=== PATIENT | male | born 1965 ===

== ENCOUNTER 2018-02-28 15:44 | Emergency (ER) | payer OTHER ==
[2018-02-28 15:51] VITALS: BP 123/77; PULSE 69; RESP 18; TEMP 98.2; O2SAT 100
--- NOTE | 2018-02-28 15:53 | C.PDOC ---
History Of Present Illness REQUESTING FENTANYL PATCH. PS DID NOT REALIZE WAS ON LAST PATCH. CURRENTLY GETS CANCER TREATMENT IN [facility] IN [place]. PT DOES NOT REQUEST A MED REFILL, ONLY 1 DOSE NOW "SO I CAN LAST LONG ENOUGH TO SEE MY CANCER DOCTOR". DENIES NEW SX EXAM NEG MDM RX REVIEWED: RECEIVES PRESCRIPTION FROM [facility] Time Seen by Provider: 02/28/18 15:53 Chief Complaint (Nursing): Med Refill History Per: Patient History/Exam Limitations: no limitations Past Medical History Reviewed: Historical Data, Nursing Documentation, Vital Signs Vital Signs: Last Vital Signs Temp 98.2 F 02/28/18 15:49 Pulse 69 02/28/18 15:49 Resp 18 02/28/18 15:49 BP 123/77 02/28/18 15:49 Pulse Ox 100 02/28/18 16:07 - Medical History PMH: Back Problems Denies: HIV, Chronic Kidney Disease Surgical History: Appendectomy, Cholecystectomy - [facility] INTRODUCTION OF SERUM/TOX/VACCINE INTO MUSCLE, PERC APPROACH (12/07/16) Family History: States: No Known Family Hx - Social History Hx Tobacco Use: Yes Hx Alcohol Use: No Hx Substance Use: No - Immunization History Hx Tetanus Toxoid Vaccination: No Hx Influenza Vaccination: No Hx Pneumococcal Vaccination: No Review Of Systems Except As Marked, All Systems Reviewed And Found Negative. Physical Exam - Physical Exam Appears: Non-toxic, No Acute Distress Skin: Normal Color, Warm, Dry Head: Atraumatic Eye(s): bilateral: Normal Inspection Neck: Supple Chest: Symmetrical Cardiovascular: Rhythm Regular Respiratory: Other (NARD) Neurological/Psych: Oriented x3, Normal Speech Gait: Steady ED Course And Treatment O2 Sat by Pulse Oximetry: 100 (RA) Pulse Ox Interpretation: Normal Medical Decision Making Medical Decision Making: Plan: Fentanyl 1 patch TD Disposition Counseled Patient/Family Regarding: Diagnosis, Need For Followup - Disposition Referrals: YOUR,ONCOLOGIST [Other] Disposition: HOME/ ROUTINE Disposition Time: 16:02 Condition: IMPROVED Instructions: Chronic Pain (DC) Forms: [facility] (Khmer) - Clinical Impression Clinical Impression: Chronic pain - Scribe Statement The provider has reviewed the documentation as recorded by the Scribe (Aspen Lema) Provider Attestation: All medical record entries made by the Scribe were at my direction and personally dictated by me. I have reviewed the chart and agree that the record accurately reflects my personal performance of the history, physical exam, medical decision making, and the department course for this patient. I have also personally directed, reviewed, and agree with the discharge instructions and disposition.
== END 2018-02-28 16:28 | disposition home or self-care (01) ==
LOC: C.ER 15:44
DX: G89.29 Other chronic pain (principal)

== ENCOUNTER 2018-11-26 12:02 | Emergency (ER) | payer MEDICAID, OTHER ==
--- NOTE | 2018-11-26 13:51 | C.PDOC ---
History Of Present Illness 53 year old male presents to the ED for evaluation of bilateral posterior back discomfort which began 4 days ago. Patient states his pain is positionally and digitally reproducible and is worse with deep breaths and inspiration. Patient denies recent falls or trauma. Patient has history of squamous cell carcinoma in 2017. He was evaluated and underwent treatment in [facility] in [place] in 2017. He received radiation and chemotherapy, but did not undergo surgery. Patient reports one day history of right-sided throat discomfort which feels like a foreign body is in this throat. Patient st ates this feels similar to prior symptoms from 2017. He denies fever, chills. Time Seen by Provider: 11/26/18 12:17 Chief Complaint (Nursing): Back Pain History Per: Patient History/Exam Limitations: no limitations Onset/Duration Of Symptoms: Days (4) Current Symptoms Are (Timing): Still Present Quality Of Discomfort: "Pain" Previous Symptoms: Back Pain Associated Symptoms: denies: Incontinence, New Weakness, New Numbness Additional History Per: Patient Past Medical History Reviewed: Historical Data, Nursing Documentation, Vital Signs Vital Signs: Last Vital Signs Temp 98.1 F 11/26/18 12:12 Pulse 60 11/26/18 12:12 Resp 18 11/26/18 12:12 BP 120/80 11/26/18 12:12 Pulse Ox 100 11/26/18 12:12 - Medical History PMH: Back Problems Denies: HIV, Chronic Kidney Disease Surgical History: Appendectomy, Cholecystectomy - [facility] Procedures INTRODUCTION OF SERUM/TOX/VACCINE INTO MUSCLE, PERC APPROACH (12/07/16) Family History: States: Unknown Family Hx - Social History Hx Tobacco Use: Yes Hx Alcohol Use: No Hx Substance Use: No - Immunization History Hx Tetanus Toxoid Vaccination: No Hx Influenza Vaccination: No Hx Pneumococcal Vaccination: No Review Of Systems Constitutional: Negative for: Fever, Chills ENT: Positive for: Throat Pain (right-sided ) Musculoskeletal: Positive for: Back Pain Physical Exam - Physical Exam Appears: Non-toxic, No Acute Distress Skin: Normal Color, Warm, Dry, No Rash Head: Atraumatic, Normacephalic Eye(s): bilateral: Normal Inspection Nose: Normal, No Discharge Oral Mucosa: Moist Throat: Other (pallor and mild edema to oropharynx. normal tonsils. uvula at midline ) Neck: Normal ROM, Supple Lymphatic: No Adenopathy, Other (no submandibular mass) Chest: Symmetrical, No Deformity, No Tenderness Cardiovascular: Rhythm Regular, No Murmur Respiratory: Normal Breath Sounds, No Rales, No Rhonchi, No Wheezing Gastrointestinal/Abdominal: Soft, No Tenderness, No Guarding, No Rebound Back: Other (digitally reproducible pain to the bilateral back, thoracic regions ) Extremity: Normal ROM, Capillary Refill (less than 2 seconds ), Other (no clubbing, cyanosis or edema to bilateral lower extremities) Neurological/Psych: Oriented x3, Normal Speech, Normal Cognition ED Course And Treatment - Laboratory Results Result Diagrams: 11/26/18 14:29 11/26/18 14:29 O2 Sat by Pulse Oximetry: 100 (on RA) Pulse Ox Interpretation: Normal Progress Note: Bloodwork, CT Chest, CT Neck Soft Tissue, CXR ordered and reviewed. Toradol IM and IV Fluids given. Medical Decision Making Medical Decision Making: sore throat mild viral syndrome s/p chemo/rads for SQ call CA @[facility] in 2016 CT soft neck neg no CA recurrence NSAIDS PRN posterior chest wall pain costochondritis CT C/A/P neg for mets/CA/PNA improved with toadol IV continue motrin Disposition Doctor Will See Patient In The: Office Counseled Patient/Family Regarding: Studies Performed, Diagnosis - Disposition Disposition: HOME/ ROUTINE Disposition Time: 20:04 Condition: GOOD Forms: [facility] (Central African) - Clinical Impression Clinical Impression: Thoracic back pain, Sore throat - Scribe Statement The provider has reviewed the documentation as recorded by the Bethanyibe (Bisi Smiley) Provider Attestation: All medical record entries made by the Bethanyibchelly were at my direction and personally dictated by me. I have reviewed the chart and agree that the record accurately reflects my personal performance of the history, physical exam, medical decision making, and the department course for this patient. I have also personally directed, reviewed, and agree with the discharge instructions and disposition.
[2018-11-26] MEDS ORDERED: Sodium Chloride 0.9% 1,000 ML IV ONE (13:52)
[2018-11-26 14:36] LABS: BASO # 0.1 K/uL (0.0-0.2); BASO % 0.9 % (0.0-2.0); EOS # 0.2 K/uL (0.0-0.7); EOS % 2.4 % (0.0-4.0); HEMOGLOBIN 13.9 g/dL (12.0-18.0); LYMPH # 1.1 K/uL (1.0-4.3); LYMPH % 17.6 % (20.0-40.0); MEAN CORPUSCULAR HEMOGLOBIN 30.8 pg (27.0-31.0); MEAN CORPUSCULAR HGB CONC 33.3 g/dL (33.0-37.0); MONO # 0.4 K/uL (0.0-0.8); MONO % 7.1 % (0.0-10.0); NEUT # 4.5 K/uL (1.8-7.0); NRBC % 0.2 % (0.0-2.0); RBC 4.52 Mil/uL (4.40-5.90); RED CELL DISTRIBUTION WIDTH 13.4 % (11.5-14.5); WHITE BLOOD COUNT 6.2 K/uL (4.8-10.8)
[2018-11-26 14:37] LABS: MEAN CELL VOLUME 92.5 fL (80.0-94.0)
[2018-11-26] MEDS ORDERED: Sodium Chloride 0.9% 1,000 ML ONE (14:38)
[2018-11-26 14:44] LABS: PROTHROMBIN TIME 11.1 SECONDS (9.7-12.2)
[2018-11-26 14:47] LABS: ALB/GLOB RATIO 1.7 (1.0-2.1); ALBUMIN 4.1 g/dL (3.5-5.0); ALT/SGPT 24 U/L (21-72); AST/SGOT 23 U/L (17-59); BLOOD UREA NITROGEN 13 mg/dL (9-20); GFR NON-AFRICAN AMERICAN > 60
[2018-11-26 14:59] LABS: B-TYPE NATRIURETIC PEPTIDE 29.7 pg/mL (0-900)
[2018-11-26] MEDS ORDERED: Iodixanol 320 MG/ML 100 ML BOTTLE IV ONE (15:59)
--- NOTE | 2018-11-26 16:28 | RAD ---
Date of service: 11/26/2018 PROCEDURE: CHEST RADIOGRAPH, 1 VIEW HISTORY: SOB COMPARISON: 02/24/2014. FINDINGS: Left-sided MediPort terminates at the cavoatrial junction. LUNGS: The lungs are well inflated and clear. PLEURA: No pneumothorax or pleural effusion. CARDIOVASCULAR: The heart is normal in size. No aortic atherosclerotic calcifications present. OSSEOUS STRUCTURES: Within normal limits for the patient's age. VISUALIZED UPPER ABDOMEN: Normal. OTHER FINDINGS: None. IMPRESSION: No active pulmonary disease.
--- NOTE | 2018-11-26 17:37 | CT ---
Date of service: 11/26/2018 CT chest, abdomen, and pelvis with IV contrast Indication: back pain, h/o neck sqam CA, ? PE/Mets Technique: Contiguous axial images of the chest, abdomen, and pelvis. Coronal and Sagittal reformats generated and reviewed. This CT exam was performed using 1 or more of the following dose reduction techniques: Automated exposure control, adjustment of the MAA and/or kV according to patient size, and/or use of iterative reconstruction technique. Contrast: 75 mL Visipaque 320 IV Radiation dose: Total exam DLP = 657.85 MGy-cm. Comparison: CT abdomen and pelvis with IV contrast performed 02/18/13 Findings: Visualized portions of the inferior thyroid gland appear unremarkable. The mediastinal and hilar vascular structures appear within normal limits. The heart appears within normal limits of size. 3 mm nodule, superior aspect of the left upper lobe (series 4, image 52). There is no focal consolidation, significant pleural effusion, or definite pneumothorax evident. No suspicious pulmonary nodules measuring greater than 5 mm. Cholecystectomy. Pneumobilia. Coarse hepatic calcifications, likely granulomas. The spleen, kidneys, pancreas, and adrenal glands appear unremarkable. The stomach is nondistended. The bowel loops appear within normal limits of caliber without evidence of intestinal obstruction. There is no definite free air. The prostate gland measures approximately 4.4 x 4.8 cm. Mildly thick-walled urinary bladder. Multilevel degenerative changes of the spine including intervertebral disc space narrowing, osteophyte formation and vacuum disc phenomenon. Impression: 3 mm nodule noted in the superior aspect of the left upper lobe. Recommend [address] follow-up. Pneumobilia in the setting of cholecystectomy. Coarse hepatic calcifications, likely granulomas. Mildly thick-walled urinary bladder. Recommend correlation with urinalysis. Enlarged prostate gland. Recommend correlation with PSA.
--- NOTE | 2018-11-26 18:45 | CT ---
Date of service: 11/26/2018 PROCEDURE: CT NECK WITH CONTRAST HISTORY: R throat, h/o R throat SQ CA 2017, s/p Chemo/rads COMPARISON: None available. TECHNIQUE: CT of the neck with intravenous contrast. Coronal and sagittal reformats generated. Intravenous contrast dose: 25 cc Visipaque 320. Radiation dose: Total exam DLP = 600.9 mGy-cm. This CT exam was performed using one or more of the following dose reduction techniques: Automated exposure control, adjustment of the mA and/or kV according to patient size, and/or use of iterative reconstruction technique. FINDINGS: NASOPHARYNX: Unremarkable. SUPRAHYOID NECK: Unremarkable oropharynx, oral cavity, parapharyngeal space and retropharyngeal space. Thickening of the epiglottis which likely reflects the sequela of prior radiation therapy. INFRAHYOID NECK: Unremarkable larynx, hypopharynx, and supraglottic space. Vocal cords intact. Small laryngeal diverticulum not felt to be clinically consequential. MASS: None. GLANDS: Parotid and submandibular glands unremarkable. Normal size thyroid gland, without nodule. LYMPH NODES: Normal. No lymphadenopathy. CERVICAL SPINE: Cervical spondylotic changes C5-6 and C6-7. VASCULAR STRUCTURES: Unremarkable. OTHER FINDINGS: None. IMPRESSION: Presumed post treatment changes in the oropharynx and subglottic region. No evidence of tumor. No evidence of acute inflammatory process.
[2018-11-26 20:26] VITALS: BP 118/70; PULSE 70; RESP 16; TEMP 97.9; O2SAT 98
== END 2018-11-26 20:26 | disposition home or self-care (01) ==
LOC: C.ER 12:02
DX: M54.6 Pain in thoracic spine (principal); J02.9 Acute pharyngitis, unspecified
CPT/HCPCS: 70491; 71045; 71260; 74177; 80053; 83880; 84484; 85025; 85378; 85610; 85730; 96361; 96374; 99285; J1885; J7030; Q9967